=== PATIENT | male | born 1985 | race Hispanic/Latino ===

== ENCOUNTER 2017-08-26 08:21 | Emergency (ER) | payer SELFPAY ==
[2017-08-26] MEDS ORDERED: Acetaminophen 500 MG TAB ONE (08:32)
== END 2017-08-26 09:08 ==
LOC: ERS 08:21
DX: Z53.21 Procedure and treatment not carried out due to patient leaving prior to being seen by health care provider (principal)

== ENCOUNTER 2022-05-24 16:40 | Emergency (ER) | payer SELFPAY ==
[2022-05-24] MEDS ORDERED: Boostrix 0.5 ML (Tdap) VIAL (>/=7 yrs of age) ONE (17:35)
== END 2022-05-24 17:54 | disposition home or self-care (01) ==
LOC: ERS 16:40
DX: S61.254A Open bite of right ring finger without damage to nail, initial encounter (principal); Z23 Encounter for immunization; W53.01XA Bitten by mouse, initial encounter
CPT/HCPCS: 90471; 90715

== ENCOUNTER 2023-10-24 20:45 | Emergency (ER) | payer OTHER, SELFPAY ==
[2023-10-24] MEDS ORDERED: Ketorolac Tromethamine 30 MG (1 mL) VIAL ONE (21:20)
[2023-10-24] MEDS ORDERED: Clindamycin 150 MG CAP ONE (21:20)
== END 2023-10-24 21:40 | disposition home or self-care (01) ==
LOC: ERS 20:45
DX: K04.7 Periapical abscess without sinus (principal); F17.210 Nicotine dependence, cigarettes, uncomplicated
CPT/HCPCS: 96372; J1885